=== PATIENT | female | born 1990 | race Hispanic/Latino ===

== ENCOUNTER 2017-04-29 22:55 | Emergency (ER) | payer SELFPAY ==
[2017-04-29 23:11] VITALS: BP 124/71
[2017-04-29] MEDS ORDERED: TORADOL IV ONE (23:13)
[2017-04-29] MEDS ORDERED: ZOFRAN IV ONE (23:13)
[2017-04-29 23:53] LABS: Hematocrit 37.9 % (30.3-42.9); Hemoglobin 12.3 gm/dl (10.1-14.3); Mean Corpuscular HGB Conc 32 % (30-34); Mean Corpuscular Hemoglobin 31 pg (28-32); Mean Corpuscular Volume 95 fl (79-97); Platelet Count 327 K/mm3 (140-440); Red Cell Distribution Width 13.6 % (13.2-15.2)
[2017-04-29 23:57] LABS: White Blood Count 22.7 K/mm3 (4.5-11.0)
[2017-04-30 00:13] LABS: Alanine Aminotransferase 9 units/L (7-56); Albumin 4.3 g/dL (3.9-5); Albumin/Globulin Ratio 1.5 %; Alkaline Phosphatase 43 units/L (35-129); BUN/Creatinine Ratio 14; Blood Urea Nitrogen 10 mg/dL (7-17); Carbon Dioxide 23 mmol/L (22-30); Chloride 100.1 mmol/L (98-107); Glucose 124 mg/dL (65-100); Lipase 31 units/L (13-60); Potassium 3.9 mmol/L (3.6-5.0); Sodium 139 mmol/L (137-145); Total Protein 7.2 g/dL (6.3-8.2)
[2017-04-30 00:16] LABS: Anion Gap 20 mmol/L
[2017-04-30 01:33] LABS: Basophils % (Manual) 0 % (0.0-1.8); Blastocytes % (Manual) 0 %
[2017-04-30 01:34] LABS: Anisocytosis 1+
[2017-04-30 01:35] LABS: Diff Status Complete; Hypersegmented Neutrophils Few
--- NOTE | 2017-05-02 12:27 | ED Elopement Review ---
ED Pt Elopement review - Results review Lab results: Laboratory Tests 04/29/17 04/29/17 04/29/17 23:23 23:23 23:23 WBC 22.7 H RBC 4.00 Hgb 12.3 Hct 37.9 MCV 95 MCH 31 MCHC 32 RDW 13.6 Plt Count 327 Add Manual Diff Complete Total Counted 100 Seg Neuts % (Manual) 58.0 Band Neutrophils % 8.0 Lymphocytes % (Manual) 15.0 Reactive Lymphs % (Man) 0 Monocytes % (Manual) 14.0 H Eosinophils % (Manual) 4.0 Basophils % (Manual) 0 Metamyelocytes % 1.0 Myelocytes % 0 Promyelocytes % 0 Blast Cells % 0 Nucleated RBC % Not Reportable Seg Neutrophils # Man 13.2 H Band Neutrophils # 1.8 Lymphocytes # (Manual) 3.4 Abs React Lymphs (Man) 0.0 Monocytes # (Manual) 3.2 H Eosinophils # (Manual) 0.9 H Basophils # (Manual) 0.0 Metamyelocytes # 0.2 Myelocytes # 0.0 Promyelocytes # 0.0 Blast Cells # 0.0 WBC Morphology Not Reportable Hypersegmented Neuts Few Hyposegmented Neuts Not Reportable Hypogranular Neuts Not Reportable Smudge Cells Not Reportable Toxic Granulation Not Reportable Toxic Vacuolation Not Reportable Dohle Bodies Not Reportable Pelger-Huet Anomaly Not Reportable Khanh Rods Not Reportable Platelet Estimate Appears normal Clumped Platelets Not Reportable Plt Clumps, EDTA Not Reportable Large Platelets Not Reportable Giant Platelets Not Reportable Platelet Satelliting Not Reportable Plt Morphology Comment Not Reportable RBC Morphology Not Reportable Dimorphic RBCs Not Reportable Polychromasia Not Reportable Hypochromasia Not Reportable Poikilocytosis Not Reportable Anisocytosis 1+ Microcytosis Not Reportable Macrocytosis Not Reportable Spherocytes Not Reportable Pappenheimer Bodies Not Reportable Sickle Cells Not Reportable Target Cells Not Reportable Tear Drop Cells Not Reportable Ovalocytes Not Reportable Helmet Cells Not Reportable [place] Bodies Not Reportable [place] Rings Not Reportable Moise Cells Not Reportable Bite Cells Not Reportable Crenated Cell Not Reportable Elliptocytes Not Reportable Acanthocytes (Spur) Not Reportable Rouleaux Not Reportable Hemoglobin C Crystals Not Reportable Schistocytes Not Reportable Malaria parasites Not Reportable Marcial Bodies Not Reportable Hem Pathologist Commnt No Sodium 139 Potassium 3.9 Chloride 100.1 Carbon Dioxide 23 Anion Gap 20 BUN 10 Creatinine 0.7 Estimated GFR > 60 BUN/Creatinine Ratio 14 Glucose 124 H Calcium 9.0 Total Bilirubin 0.20 AST 13 ALT 9 Alkaline Phosphatase 43 Total Protein 7.2 Albumin 4.3 Albumin/Globulin Ratio 1.5 Lipase 31 HCG, Qual Negative - Call Back decision Pt Call Back Decision: Call pt to return to ED [facility]
== END 2017-04-29 23:24 | disposition left against medical advice (07) ==
LOC: ED 22:55
DX: R10.9 Unspecified abdominal pain (principal); Z53.21 Procedure and treatment not carried out due to patient leaving prior to being seen by health care provider
CPT/HCPCS: 36415; 80053; 83690; 84703; 85007; 85025; J1885; J2405